=== PATIENT | female | born 1955 | race Caucasian/White ===

== ENCOUNTER 2024-09-04 12:21 | Emergency (ER) | payer MEDICARE, MEDICAID ==
[~2024-09-04] VITALS: Ht 175.3 cm; Wt 95.0 kg
[~2024-09-04 12:21] MED LIST: ALBU18; ALLO-51; FLUT500M6; LISI20TA56; MELO-61; MONT10TA23; OMEP20TA30; SIMV-268; THEO300T5; TRIA25CA; ZOLP10TA
--- NOTE | 2024-09-04 13:16 | ED.PDOC ---
History of Present Illness HPI Comments 68-year-old female brought in by ambulance prior medical history of hypertension, asthma, epilepsy, CKF, high lipids: Surgical history of a hip surgery, knee surgery, shoulder surgery, cholecystectomy, tonsillectomy and a chief complaint of a fall. S report that the patient was at the physical therapist around the corner when she tripped and fell going to right knee and hip on to a matted surface. Patient's proximal femur to his knee on the right lower extremity is tender to palpation. Denies chills, fever, N/V/D, SOB, CP. No other associated symptoms, modifiers, recent injuries or sick contacts present at this time. Chief Complaint: Fall Injury Time Seen by MD: 12:35 Primary Care Provider: KRISS Reviewed Notes: Nurses Notes, Medications, Allergies Allergies: Coded Allergies: Morphine (Verified Allergy, 04/30/12) Uncoded Allergies: PLASTIC TAPE (Allergy, 04/30/12) Home Meds Reported Medications Fluticasone-Salmeterol (Advair Diskus) 500/50 Mis 04/30/12 Simvastatin (Zocor) 10 Mg Tab 04/30/12 Zolpidem Tartrate (Ambien) 10 Mg Tab 04/30/12 Allopurinol (Zyloprim) 100 Mg Tab 04/30/12 Hydrochlorothiazide W/Triamter (Hctz/Triamterene) 1 Cap Cap 04/30/12 Lisinopril (Lisinopril) 20 Mg Tab 04/30/12 Meloxicam (Mobic) 15 Mg Tab 04/30/12 Omeprazole (Eql Omeprazole) 20 Mg Tab 04/30/12 Montelukast Sodium (Singulair) 10 Mg Tab 04/30/12 Theophylline (Theophylline Cr) 300 Mg Tab, TID 04/30/12 Albuterol Sulfate (Ventolin Hfa) Aer 04/30/12 Information Source: Patient, Emergency Med Personnel Mode of Arrival: EMS Severity: Moderate Timing: Minutes Duration: Since onset, Minutes Prehospital treatment: None Past Medical History PAST MEDICAL HISTORY: Asthma, CKF, High Lipids, HTN Past Medical History (Other): Epilepsy Surgical History: Cholecystectomy, Tonsillectomy Surgical History (Other): Shoulder, hip, knee surgeries STRENGTH AND CONDITIONING COACH History: No Pertinent STRENGTH AND CONDITIONING COACH History Family History Family History: Reviewed,noncontributory to illness, Unknown Social History Smoker: Non-Smoker Alcohol: Unknown Drugs: Denies Drug Use Lives In: Home Constitutional: denies: chills, diaphoresis, fatigue, fever, malaise, sweats, weakness, others EENTM: denies: blurred vision, double vision, ear bleeding, ear discharge, ear drainage, ear pain, ear ringing, eye pain, eye redness, hearing loss, mouth pain, mouth swelling, nasal discharge, nose bleeding, nose congestion, nose pain, photophobia, tearing, throat pain, throat swelling, voice changes, others Respiratory: denies: cough, hemoptysis, orthopnea, SOB at rest, shortness of breath, SOB with excertion, stridor, wheezing, others Cardiovascular: denies: chest pain, dizzy spells, diaphoresis, Dyspnea on exertion, edema, irregular heart beat, left arm pain, lightheadedness, palpitations, PND, syncope, others Gastrointestinal: denies: abdomen distended, abdominal pain, blood streaked bowels, constipated, diarrhea, dysphagia, difficulty swallowing, hematemesis, melena, nausea, poor appetite, poor fluid intake, rectal bleeding, rectal pain, vomiting, others Genitourinary: denies: abnormal vagina bleeding, burning, dyspareunia, dysuria, flank pain, frequency, hematuria, incontinence, pain, , vagina discharge, urgency, others Neurological: denies: dizziness, fainting, headache, left sided numbness, left sided weakness, numbness, paresthesia, pre-existing deficit, right sided numbness, right sided weakness, seizure, speech problems, tingling, tremors, weakness, others Musculoskeletal: reports: others (Right knee and right hip pain); denies: back pain, gout, joint pain, joint swelling, muscle pain, muscle stiffness, neck pain Integumetry: denies: bruises, change in color, change in hair/nails, dryness, laceration, lesions, lumps, rash, wounds, others Allergic/Immunocompromised: denies: Difficulty Healing, Frequent Infections, Hi ves, Itching, others Hematologic/Lymphatic: denies: anemia, blood clots, easy bleeding, easy bruising, swollen glands, others Endocrine: denies: excessive hunger, excessive sweating, excessive thirst, excessive urination, flushing, intolerance to cold, intolerance to heat, unexplained weight gain, unexplained weight loss, others Psychiatric: denies: anxiety, bipolar disorder, depression, hopeless, panic disorder, schizophrenia, sleepless, suicidal, others All Other Systems: Reviewed and Negative Physical Exam General Appearance: No Apparent Distress, Normal HEENT: Normal ENT Inspection, Pharynx Normal, TMs Normal Neck: Full Range of Motion, Non-Tender, Normal, Normal Inspection Respiratory: Chest Non-Tender, Lungs Clear, No Accessory Muscle Use, No Respiratory Distress, Normal Breath Sounds Cardiovascular: No Edema, No JVD, No Murmur, No Gallop, Normal Peripheral Pulses, Regular Rate/Rhythm Breast Exam: Deferred Gastrointestinal: No Organomegaly, Non Tender, No Pulsatile Mass, Normal Bowel Sounds, Soft Genitalia: Deferred Pelvic: Deferred Rectal: Deferred Extremities: No calf tenderness, Normal capillary refill, Normal inspection, Normal range of motion, Non-tender, No pedal edema Musculoskeletal : Location: Right Extremity Location: Femur (proximal femur to his knee on the right lower extremity is tender to palpation.), Knee Apperance: Swelling, Tenderness: Moderate Neurologic: Alert, web content producer II-XII nml as Tested, No Motor Deficits, Normal Affect, Normal Mood, No Sensory Deficits Cerebellar Function: Normal Reflexes: Normal Skin: Dry, Normal Color, Warm Lymphatic: No Adenopathy Was a procedure done? Was a procedure done?: No Differential Dx Considerations may include: fracture, sprain, strain, dislocation, hematoma, contusion X-Ray, Labs, Meds, VS Vital Signs Date Time Temp Pulse Resp B/P (MAP) Pulse Ox O2 Delivery O2 Flow Rate FiO2 09/04/24 14:46 72 18 147/96 (113) 97 09/04/24 14:43 147/96 09/04/24 13:32 115/64 09/04/24 13:31 99.4 69 20 115/64 (81) 96 99.4 09/04/24 13:30 69 22 96 Room Air* 0 21 09/04/24 12:30 98.7 67 18 161/89 (113) 96 98.7 Current Medications Medications (Trade) Dose Ordered Sig/Manpreet Route Start Time Stop Time Status Last Admin Fentanyl Citrate 12.5 mcg ONCE ONCE IV 09/04/24 13:15 09/04/24 13:16 DC 09/04/24 13:32 Fentanyl Citrate 25 mcg ONCE ONCE IV 09/04/24 14:30 09/04/24 14:34 DC 09/04/24 14:43 Time of 1ST Reevaluation: 12:35 Reevaluation 1ST: Unchanged Patient Education/Counseling: Diagnosis, Treatment, Prognosis Family Education/Counseling: No Family Present Comments pt has several nonspecific ct changes. she also has a right knee hematoma. given the degree of pain, she may have subtle acetabular and femoral fractures. she will be admitted for ortho evaluation and pain control SEPSIS Sepsis Screen Physician Orders Lower Extremity Non Joint Righ (09/04/24 13:15) Vital Signs Date Time Temp Pulse Resp B/P (MAP) Pulse Ox O2 Delivery O2 Flow Rate FiO2 09/04/24 14:46 72 18 147/96 (113) 97 09/04/24 14:43 147/96 09/04/24 13:32 115/64 09/04/24 13:31 99.4 69 20 115/64 (81) 96 99.4 09/04/24 13:30 69 22 96 Room Air* 0 21 09/04/24 12:30 98.7 67 18 161/89 (113) 96 98.7 Medications Medications Dose Ordered Sig/Manpreet Route Start Time Stop Time Status Last Admin Dose Admin Fentanyl Citrate 12.5 mcg ONCE ONCE IV 09/04/24 13:15 09/04/24 13:16 DC 09/04/24 13:32 Fentanyl Citrate 25 mcg ONCE ONCE IV 09/04/24 14:30 09/04/24 14:34 DC 09/04/24 14:43 Departure 1 Departure Time of Disposition: 16:29 Impression: Primary Impression: Falling Additional Impressions: Intractable pain Hip pain, right Knee pain Pain in femur Traumatic hematoma of knee Disposition: ADMITTED INPATIENT Admit to: Med Surg Condition: Serious Discharged With: Self Critical Care Note Critical Care Time?: Yes (55 min-critical care time only) Critical care comment: Due to concerns for patients condition deteriorating, the care required my highest level of attention and readiness to intervene. I assessed the patient, reviewed the medical records, ordered the appropriate tests and treatments, then reassessed for results and responsiveness. I communicated with medical personnel and consultants and formulated a plan of care. Total critical care time excludes any procedures Stability Stability form required: No I personally scribed for DENICE CHAPMAN MD ([email or web address]) on 09/04/24 at 13:16. Electronically submitted by Mika Tirado ([email or web address]). DENICE CHAPMAN MD Sep 04, 2024 13:16
[2024-09-04 13:30] VITALS: PULSE 69; RESP 22; O2SAT 96
[2024-09-04] MEDS: fentaNYL CITRATE 100 MCG/2 ML VL IV ONE ×5 (13:32→22:41)
--- NOTE | 2024-09-04 16:07 | DVH ---
INDICATION: FALL, pain COMPARISON: None TECHNIQUE: CT of the right lower extremity was performed without contrast. Volume transverse images w ere obtained and reconstructed in multiple planes using bone and soft tissue algorithms. Radiation Dose Information: CT Dose: CTDI volume is 16.19 mGy. Dose-length product is 1918.54 mGy*cm Findings/impression: Right hip arthroplasty. Right knee arthroplasty. Extensive streak and beam hardening artifact from s urgical hardware limits visualization of bony and soft-tissue detail. Suggestion of mild cortical irregularity of the right anterior acetabulum. This may represent artifac t versus age indeterminate fracture. Age indeterminate comminuted minimally displaced fracture of the distal/lateral femoral metaphysis. 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
[2024-09-04 19:30] VITALS: PULSE 78; RESP 20; O2SAT 96
[2024-09-04] MEDS: ACETAMINOPHEN 500 MG TAB or CAP PO ONE (19:42)
[2024-09-04] MEDS: KETOROLAC TROMETH 30 MG/ML 1ML VIAL IV ONE (19:43)
[2024-09-04 22:00] VITALS: PULSE 64; PULSE 65; RESP 17; O2SAT 94; O2SAT 96
[2024-09-05] MEDS: LIDOCAINE 5% TOPICAL PATCH TOP ONE (02:19)
[2024-09-05] MEDS: HYDROcodone-ACET 10/325MG TAB PO ONE (02:20)
[2024-09-05 02:32] LABS: Hematocrit 30.6 % (36.0-46.0); Hemoglobin 10.0 g/dL (12.2-16.2); Mean Corpuscular Hemoglobin 28.2 pg (28.0-32.0); Mean Corpuscular Volume 86.1 fL (80.0-100.0); Nucleated Red Blood Cells % 0.1 %
[2024-09-05 02:42] LABS: Potassium 3.8 mmol/L (3.5-5.1); Sodium 143 mmol/L (136-145)
[2024-09-05 02:43] LABS: Anion Gap 7 (5-15); Carbon Dioxide 26 mmol/L (20-31)
[2024-09-05 02:44] LABS: Calcium 9.3 mg/dL (8.7-10.4)
[2024-09-05 02:45] LABS: Chloride 110 mmol/L (98-107)
[2024-09-05 02:48] LABS: BUN/Creatinine Ratio 32.8 (10.0-20.0); Blood Urea Nitrogen 20 mg/dL (9-23); Glucose 99 mg/dL (74-106)
[2024-09-05] MEDS: ONDANSETRON HCL 4 MG/2 ML VIAL IV ONE (03:37)
[2024-09-05] MEDS: HYDROcodone-ACET 5/325MG TAB PO ONE ×2 (06:23→08:38)
[2024-09-05 07:56] VITALS: PULSE 76; RESP 11; O2SAT 98
[2024-09-05] MEDS: ONDANSETRON ODT 4 MG TAB PO ONE (08:38)
[2024-09-05] MEDS: fentaNYL CITRATE 100 MCG/2 ML VL IV ONE (12:33)
[2024-09-05] MEDS: IPRATROPIUM BROM 0.5 MG/2.5ML INH SOL NEB ONE (13:06)
[2024-09-05] MEDS: ALBUTEROL SULF 2.5 MG/0.5ML(0.5%) NEB SOLN NEB ONE (13:06)
[2024-09-05] MEDS: HYDROmorphone HCL 2 MG/ML VL/or syr IV ONE ×3 (14:47→23:53)
[2024-09-05 19:50] VITALS: PULSE 68; RESP 18; O2SAT 98
[2024-09-05] MEDS: KETOROLAC TROMETH 30 MG/ML 1ML VIAL IV ONE (21:42)
[2024-09-05] MEDS: ACETAMINOPHEN 325 MG TAB PO ONE (21:42)
[2024-09-06] MEDS: IPRATROPIUM BROM 0.5 MG/2.5ML INH SOL NEB ONE (05:25)
[2024-09-06] MEDS: ALBUTEROL SULF 2.5 MG/0.5ML(0.5%) NEB SOLN NEB ONE (05:25)
[2024-09-06 07:30] VITALS: PULSE 84; RESP 14; O2SAT 95
[2024-09-06] MEDS: ONDANSETRON HCL 4 MG/2 ML VIAL IV ONE (10:00)
[2024-09-06] MEDS: HYDROmorphone HCL 2 MG/ML VL/or syr IV ONE (10:02)
[2024-09-06 11:37] VITALS: BP 136/66; PULSE 78; RESP 15; TEMP 99; O2SAT 98
== END 2024-09-06 11:38 | disposition short-term general hospital (02) ==
LOC: EDUNIT# 12:21 → ER 12:21 → EDBD 12:21 → ER 09-06 11:38
DX: S80.01XA Contusion of right knee, initial encounter (principal); M25.551 Pain in right hip; I10 Essential (primary) hypertension; J45.909 Unspecified asthma, uncomplicated; G40.909 Epilepsy, unspecified, not intractable, without status epilepticus; Z96.651 Presence of right artificial knee joint; Z96.641 Presence of right artificial hip joint; Z90.89 Acquired absence of other organs; Z90.49 Acquired absence of other specified parts of digestive tract; Z88.5 Allergy status to narcotic agent; Z79.899 Other long term (current) drug therapy; W01.0XXA Fall on same level from slipping, tripping and stumbling without subsequent striking against object, initial encounter; Y93.89 Activity, other specified; Y92.89 Other specified places as the place of occurrence of the external cause; Y99.8 Other external cause status
CPT/HCPCS: 36415; 73700; 80048; 82947; 85025; 94640; 96374; 96375; 96376; 99285; J1171; J1885; J2405; J3010; Q0162; 82962; 99291